=== PATIENT | male | born 1995 | race Caucasian/White ===

== ENCOUNTER 2023-09-08 12:09 | Emergency (ER) | payer MEDICAID ==
[~2023-09-08] VITALS: Ht 172.7 cm; Wt 100.7 kg
[2023-09-08] MEDS ORDERED: ACYC-108 PO (12:41)
[2023-09-08] MEDS ORDERED: HYDROCODONE/APAP 5/325MG TABLET ONE (12:45)
[2023-09-08] MEDS ORDERED: GABAPENTIN 100 MG CAPSULE ONE (12:46)
[2023-09-08] MEDS ORDERED: ACYCLOVIR 200 MG CAPSULE ONE (12:46)
[2023-09-08] MEDS ORDERED: GABAPENTIN 100 MG CAPSULE PO ONE (13:00)
[2023-09-08] MEDS ORDERED: ACYCLOVIR 200 MG CAPSULE PO ONE ×2 (13:00)
[2023-09-08] MEDS ORDERED: HYDROCODONE/APAP 5/325MG TABLET PO ONE (13:00)
[2023-09-08 13:11] VITALS: BP 128/89; TEMP 98.3; O2SAT 97
== END 2023-09-08 13:20 | disposition home or self-care (01) ==
LOC: ER 12:49
DX: B02.9 Zoster without complications (principal); M79.2 Neuralgia and neuritis, unspecified; R10.9 Unspecified abdominal pain